=== PATIENT | male | born 1990 | race Caucasian/White ===

== ENCOUNTER → 2017-07-01 | Outpatient (CLI) | payer OTHER ==
--- NOTE | 2017-07-01 10:51 | XR ---
EXAMINATION TYPE: XR lumbosacral spine min 4V DATE OF EXAM: 07/01/2017 CLINICAL HISTORY: Extreme left-sided back pain for 2 weeks per patient. TECHNIQUE: Frontal, lateral, and oblique images of the lumbar spine are obtained. COMPARISON: Lumbar spine x-ray May 09, 2015 FINDINGS: There are 5 lumbar type vertebral bodies identified. The lumbar spine shows satisfactory alignment without evidence of acute fracture or dislocation. Vertebral body heights and disk space he ights are within normal limits. No significant spurring is present. The oblique images appear withi n normal limits. The overlying soft tissue appears unremarkable. IMPRESSION: Unremarkable study. No significant change from prior.
== END | disposition home or self-care (01) ==
LOC: RADXRYALE 10:23
PROVIDERS: ATTEND Physician Assistant Medical
DX: M54.42 Lumbago with sciatica, left side (principal)
CPT/HCPCS: 72110

== ENCOUNTER → 2017-07-21 | Outpatient (CLI) | payer OTHER ==
--- NOTE | 2017-07-21 18:54 | MR ---
EXAMINATION TYPE: MR lumbar spine wo con DATE OF EXAM: 07/21/2017 COMPARISON: NONE HISTORY: Lumbago with Left Side Sciatica TECHNIQUE: T1 and T2 axial and sagittal images of the lumbar spine are submitted. FINDINGS: There is no abnormal signal seen within the visualized spinal cord or paraspinal soft tissu es. At L1-2 there is no degenerative disc disease, disc herniation, canal stenosis, or foraminal encroach ment. At L2-3 there is no degenerative disc disease, disc herniation, canal stenosis, or foraminal encroac hment. At L3-4 there is no degenerative disc disease, disc herniation, canal stenosis, or foraminal encroac hment. At L4-5 there is no degenerative disc disease, disc herniation, canal stenosis, or foraminal encroac hment. At L5-S1 there is loss of this signal and space. There is a large central and left paracentral disc h erniation. There is mass effect upon the left nerve root. Mild effacement of the thecal sac. Moderat e bilateral foraminal encroachment. IMPRESSION: 1. At L5-S1 there is is a large central and left paracentral disc herniation. There is mass effect upon the left nerve root. Mild effacement of the thecal sac. Moderate bilateral foraminal encroachmen t.
== END | disposition home or self-care (01) ==
LOC: RADMRIMAIN 15:17
PROVIDERS: ATTEND Physician Assistant Medical
DX: M51.17 Intervertebral disc disorders with radiculopathy, lumbosacral region (principal)
CPT/HCPCS: 72148

== ENCOUNTER 2017-09-10 07:23 | Day surgery (SDC) | payer OTHER ==
[2017-09-05 11:01] VITALS: BMI 29.0
[~2017-09-10 07:23] MED LIST: BACITRACIN 50,000 UNIT, POLYMYXIN B 500,000 UNIT in SODIUM CHLORIDE 0.9% IRRIGATIO 1,00... IRRIGATION ONE; DEXAMETHASONE SOD PHOSPHATE 10 MG/ML 1 ML VIAL IV ONE; LACTATED RINGERS 1,000 ML IV SCH; MIDAZOLAM 2 MG/2 ML VIAL IV PRN; ONDANSETRON 4 MG/2 ML VIAL IVP ONE; SCOPOLAMINE 1.5MG/72HR PATCH TRANSDERM ONE; ceFAZolin IN SWFI 2 GM/20 ML SYRINGE IVP ONE
[2017-09-10] MEDS ORDERED: LIDOCAINE 1% 20 ML VIAL (10MG/ML) FOR IV START INTRADERMA ONE (08:20)
[2017-09-10] MEDS ORDERED: KETAMINE 10 MG/ML 20 ML VIAL ONE (09:42)
[2017-09-10] MEDS ORDERED: MIDAZOLAM 2 MG/2 ML VIAL ONE (09:42)
[2017-09-10] MEDS ORDERED: SUCCINYLCHOLINE CHLORIDE 100 MG/5 ML SYR IV ONE (09:42)
[2017-09-10] MEDS ORDERED: NEOSTIGMINE 1 MG/ML 10 ML VIAL ONE (09:42)
[2017-09-10] MEDS ORDERED: ROCURONIUM BROMIDE 10 MG/ML 10 ML VIAL IV ONE (09:42)
[2017-09-10] MEDS ORDERED: PROPOFOL 10 MG/ML 20 ML VIAL IV ONE (09:42)
[2017-09-10] MEDS ORDERED: LIDOCAINE 1% INJ 10MG/ML (20 ML MDV) ONE (09:42)
[2017-09-10] MEDS ORDERED: fentaNYL (PF) 50 MCG/ML 2 ML AMP ONE (09:42)
[2017-09-10] MEDS ORDERED: GLYCOPYRROLATE 0.2 MG/ML 2 ML VIAL ONE (09:42)
[2017-09-10] MEDS ORDERED: GELATIN SPONGE,ABSORB (LARGE) 1 EACH SPONGE TOPICAL ONE (09:45)
[2017-09-10] MEDS ORDERED: BUPIVACAINE (PF) 0.25% 30 ML VIAL SQ ONE (09:46)
[2017-09-10] MEDS ORDERED: methylPREDNISolone ACETATE 80 MG/ML 1 ML VIAL INJ ONE (09:46)
[2017-09-10] MEDS ORDERED: THROMBIN (BOVINE) 5,000 UNIT VIAL TOPICAL ONE (10:21)
[2017-09-10] MEDS ORDERED: LACTATED RINGERS 1,000 ML IV ONE (10:50)
[2017-09-10] MEDS ORDERED: BENZOCAINE/MENTHOL LOZENG 1 EACH LOZENGE MUCOUS MEM PRN (10:56)
[2017-09-10] MEDS ORDERED: HYDROmorphone 0.5 MG/0.5 ML SYRINGE IVP PRN (10:56)
[2017-09-10] MEDS ORDERED: HYDROmorphone 2 MG/ML 1 ML SYRINGE IVP PRN (10:56)
[2017-09-10] MEDS ORDERED: IBUPROFEN 600 MG TAB PO PRN (10:56)
[2017-09-10] MEDS ORDERED: ONDANSETRON 4 MG/2 ML VIAL IVP PRN (10:56)
[2017-09-10] MEDS ORDERED: HYDROcodone/APAP 5-325MG 1 EACH TAB PO PRN ×2 (10:56)
[2017-09-10] MEDS ORDERED: DIAZEPAM 5 MG TAB PO PRN (10:56)
[2017-09-10] MEDS ORDERED: KETOROLAC 30 MG/ML 1 ML VIAL IVP PRN (10:56)
[2017-09-10] MEDS ORDERED: HYDROcodone/APAP 7.5-325MG 1 EACH TAB PO PRN (10:58)
--- NOTE | 2017-09-10 11:02 | P.OP ---
Date of Procedure: 09/10/17 Preoperative Diagnosis: Herniated nucleus pulposis L5-S1 Lower extremity radiculopathy Postoperative Diagnosis: Same Anesthesia: GETA Pathology: none sent Condition: stable Disposition: PACU Description of Procedure: BRIEF OPERATIVE NOTE Preoperative Diagnosis: Herniated nucleus pulposis L5 S1, left lower extremity radiculopathy Postoperative Diagnosis: Same Procedure: Laminectomy and decompression L5-S1 Discectomy for decompression L5-S1 Use of fluoroscopic guidance Surgeon: Dr. Holder Mortar Mixer: Satinder LANE who is present throughout the entire the case persistence during positioning, dissection, exposure, visualization, and all crucial elements of the case as well as closure. Anesthesia: General anesthesia Estimated blood loss: Less than 50 mL Complications: None apparent Components implanted: Disposition: To recovery room in good stable condition. OPERATIVE INDICATIONS The patient has been having issues in their lower back and lower extremities. the patient had significant lower extremity radiculopathy with S1 pattern. He was found to have have a large disc herniation at L5-S1 which correlated well with his low back and lower extremity symptoms. There is significant disc desiccation at L5-S1 as well. The patient has been through conservative treatment. He is not having lasting benefit disc of bite aggressive conservative treatment We discussed various treatment options including surgery , and the patient wishes to proceed with surgery We discussed the risk, patient' s alternatives and benefits of surgery including but not limited to, risk of bleeding risk of infection, risk of need for further surgery, risk of decreased , loss of motion, loss of function, nerve damage, paralysis, heart attack, blindness and . OPERATIVE SUMMARY After discussing all the risks, patient alternatives and benefits at length, the patient elected to proceed with surgical intervention, signed informed consent, and presented for their procedure. The patient was seen and examined in the preoperative holding area and the surgical site was marked. The patient was given antibiotics and brought to the operating room. The patient was sedated and intubated by anesthesia in standard fashion. The patient was positioned on to the operating room table in a prone position on the appropriate frame which was well-padded and well molded. We were careful to pad any bony prominences and pressure points. We were careful to maintain the patient's cervical spine and good neutral alignment and position throughout. The patient was prepped and draped in a normal standard fashion. An appropriate timeout and keystone protocol performed. We were able to proceed with the surgery. Fluoroscopy was utilized to establish the appropriate level of L5-S1. The local wound area was infiltrated with local anesthetic. An incision was made at the midline longitudinally over the appropriate levels at L5-S1. Dissection was taken down subcutaneously to the level of the fascia which was split midline. Dissection was taken over the lamina. Intraoperative fluoroscopy was taken which showed a marker at the appropriate level. With the appropriate level positively confirmed, we were able to proceed with laminectomy on the left. The wound was copiously irrigated and suctioned dry as had been done periodically throughout the case. I performed a laminectomy with a combination of curettes and a high-speed bur and Kerrison rongeurs. A small medial facetectomy was performed again further access. A partial foraminotomy was also performed. Portions of the ligamentum flavum were taken down to expose the dura and traversing nerve root. I was able to mobilize the traversing nerve root and gain access to the disc space. Note was made of obvious compression from the disc. Protecting the soft tissue structures, a small annulotomy was established. I was able to perform discectomy and remove any extruded disc fragments and any loose fragments from within the disc itself. There is some disc significant desiccation noted. I tried to preserve the disc annulus that appeared stable. There were no further extruded fragments noted. There is no evidence of dural tear or leak. Good hemostasis maintained. The wound was copiously irrigated and suctioned dry. Good decompression and discectomy was noted. We were able to proceed with closure. The fascia was closed for a watertight closure. The subcuticular tissue was closed with absorbable suture. The wound was cleaned and dried and dressed with the appropriate dressing. The drapes were broken down. The patient was gently rolled back onto their hospital bed being careful to maintain their cervical spine and good neutral alignment and position. They were woken up by anesthesia, extubated, and brought to the recovery room in good stable condition. The patient will be admitted to the hospital for observation and for appropriate postoperative care, medical management and monitoring. We will continue to follow them closely about the postoperative course.
[2017-09-10] MEDS: HYDROmorphone 0.5 MG/0.5 ML SYRINGE IVP PRN ×4 (11:09→11:25)
[2017-09-10] MEDS: MEPERIDINE 50 MG/ML SYRINGE IVP ONE ×2 (11:28→11:38)
[2017-09-10 12:24] VITALS: BP 120/66; PULSE 16; RESP 16; TEMP 98.2
--- NOTE | 2017-09-10 12:58 | XR ---
EXAMINATION TYPE: XR lumbar spine 1V, FL guidance operating room DATE OF EXAM: 09/10/2017 CLINICAL HISTORY: Back pain TECHNIQUE: Fluoroscopy. COMPARISON: None. FINDINGS/IMPRESSION: Fluoroscopic guidance was provided during procedure performed by Dr. Holder. A total of 2 seconds of fluoroscopic time was utilized during the procedure and 1 spot images was acqui red demonstrating intraoperative localization of the lumbar spine.
[2017-09-10] MEDS ORDERED: ceFAZolin IN SWFI 2 GM/20 ML SYRINGE IVP SCH (16:00)
[2017-09-10] MEDS ORDERED: DOCUSATE 100 MG CAP PO SCH (21:00)
== END 2017-09-10 16:40 | disposition home or self-care (01) ==
LOC: OR 07:23 → 5MS5E 11:03 → OR 16:40
PROVIDERS: ATTEND Orthopaedic Surgery Orthopaedic Surgery of the Spine
DX: M51.16 Intervertebral disc disorders with radiculopathy, lumbar region (principal); Z87.891 Personal history of nicotine dependence; Z79.891 Long term (current) use of opiate analgesic; Z88.2 Allergy status to sulfonamides; Z88.8 Allergy status to other drugs, medicaments and biological substances
CPT/HCPCS: 72020; 63047; J1040; J1100; J2175; J2405; J1885; J1170

== ENCOUNTER 2019-05-25 18:14 | Emergency (ER) | payer OTHER ==
[2019-05-25 18:49] VITALS: BP 127/88; PULSE 98; RESP 18; TEMP 98.9
--- NOTE | 2019-05-25 19:00 | ED ---
Back Pain HPI - General Chief Complaint: Back Pain/Injury Stated Complaint: BACK PAIN Time Seen by Provider: 05/25/19 18:54 Source: patient Limitations: no limitations - History of Present Illness Initial Comments: 28-year-old male presenting for low back pain. Patient states that he has had left lower back pain chronically. He states he has had a previous L5 discectomy performed by Dr. Kwok. Patient states that he has had chronic pain since. He states the pain down his left leg. Patient denies any changes in characteristic of the pain. Denies fever or IV drug use recent falls or trauma to the back. Patient denies loss of bowel bladder control urinary retention. Denies history of cancer. Patient denies any weakness of the lower extremities he denies any sensation deficits. Patient denies any fever or IV drug use. Patient states that he was unable to tolerate his chronic pain that is seemed to be increased the past week he decided to present to the emergency department for evaluation. Patient denies any urinary symptoms. - Related Data Previous Rx's Medication Instructions Recorded Docusate [Colace] 100 mg PO BID #60 capsule 08/24/17 HYDROcodone/APAP 7.5-325MG [[place] 1 tab PO TID PRN #50 tab 08/24/17 7.5-325] Ibuprofen [Motrin] 600 mg PO Q8HR PRN #50 tab 08/24/17 HYDROcodone/APAP 7.5-325MG [[place] 1 tab PO Q6HR PRN #90 tab 09/10/17 7.5-325] Cyclobenzaprine [Flexeril] 10 mg PO TID PRN 7 Days #21 tab 05/25/19 HYDROcodone/APAP 5-325MG [[place] 1 tab PO Q6HR PRN 3 Days #12 tab 05/25/19 5-325] Allergies Allergy/AdvReac Type Severity Reaction Status Date / Time sulfamethoxazole Allergy Rash/Hives Verified 05/25/19 18:49 [From Bactrim] trimethoprim [From Bactrim] Allergy Rash/Hives Verified 05/25/19 18:49 venlafaxine [From Effexor] AdvReac SUICIDAL Verified 05/25/19 18:49 Review of Systems ROS Statement: Those systems with pertinent positive or pertinent negative responses have been documented in the HPI. ROS Other: All systems not noted in ROS Statement are negative. Past Medical History Past Medical History: No Reported History Additional Past Medical History / Comment(s): back pain History of Any Multi-Drug Resistant Organisms: None Reported Past Surgical History: Back Surgery Past Anesthesia/Blood Transfusion Reactions: No Reported Reaction Past Psychological History: Anxiety, Depression Smoking Status: Current every day smoker Past Alcohol Use History: None Reported Past Drug Use History: Marijuana General Exam - General Exam Comments Initial Comments: General: The patient is awake and alert, in no distress, and does not appear acutely ill. Eye: Pupils are equal, round and reactive to light, extra-ocular movements are intact. No nystagmus. There is normal conjunctiva bilaterally. No signs of icterus. Ears, nose, mouth and throat: There are moist mucous membranes and no oral lesions. Neck: The neck is supple, there is no tenderness or JVD. Cardiovascular: There is a regular rate and rhythm. No murmur, rub or gallop is appreciated. Respiratory: Lungs are clear to auscultation, respirations are non-labored, breath sounds are equal. No wheezes, stridor, rales, or rhonchi. Musculoskeletal: Skin inspection of the cervical thoracic and lumbar spine. Patient paravertebral tenderness of the lumbar spine. No midline tenderness. Positive straight leg raise on the left. Strength in the lower extremities equal comparison bilaterally. Full sensation of the lower extremities including saddle region. +2 dorsalis pedis pulses bilaterally. Evidence of footdrop or myoclonus. No fasciculations. Neurological: A&O x 3. CN II-XII intact, There are no obvious motor or sensory deficits. Coordination appears grossly intact. Speech is normal. Skin: Skin is warm and dry and no rashes or lesions are noted. Psychiatric: Cooperative, appropriate mood & affect, normal judgment. Limitations: no limitations Course Vital Signs 05/25/19 18:45 Temperature 98.9 F Pulse Rate 98 Respiratory 18 Rate Blood Pressure 127/88 O2 Sat by Pulse 95 Oximetry Medical Decision Making - Medical Decision Making 28yo Male presented for acute on chronic low back pain. Mostly paravertebral on examination. No appreciable midline tenderness. Patient is positive straight leg raise. He states he does have chronic left leg radiculopathy-like pain. Patient has no signs of cauda equina on examination no weakness. No sensation deficits. Patient has mostly paravertebral tenderness will be prescribed a muscle relaxer as well as medication for the pain. Patient is to follow-up with orthopedic surgery. Patient was requesting a second opinion was provided Dr. Miller neurosurgeon for evaluation of chronic back pain. Otherwise at this time patient appears well no other red flags patient has no trauma history. Patient be discharged I did recommend outpatient imaging studies including MRI for further evaluation. Patient verbalized understanding was agreeable and appeared happy with plan and was discharged appearing well and auditory Disposition Clinical Impression: Acute exacerbation of chronic low back pain, Radiculopathy Disposition: HOME SELF-CARE Condition: Good Instructions (If sedation given, give patient instructions): Acute Low Back Pain (ED) Additional Instructions: Please use medication as discussed. Please follow-up with family doctor in the next 2 days. Please return to emergency room if the symptoms increase or worsen or for any other concerns. Prescriptions: Cyclobenzaprine [Flexeril] 10 mg PO TID PRN 7 Days #21 tab PRN Reason: Muscle Spasm HYDROcodone/APAP 5-325MG [[place] 5-325] 1 tab PO Q6HR PRN 3 Days #12 tab PRN Reason: Severe Pain Is patient prescribed a controlled substance at d/c from ED?: Yes When asked, does pt state using other controlled substances?: No If prescribed controlled substance>3 days was MAPS reviewed?: Prescribed <3 Days If opioid is for acute pain is fill amount 7 days or less?: Yes If Rx opioid, was Start Talking consent form obtained?: Yes Referrals: Claudy Ramirez DO [Primary Care Provider] - 1-2 days Nelson Holder DO [Doctor of Osteopathic Medicine] - 1-2 days Jaylan Miller MD [STAFF PHYSICIAN] - 1-2 days Time of Disposition: 19:00
[2019-05-25] MEDS ORDERED: CYCLOBENZAPRINE 10MG STARTER 3 TAB BTL PO STA (19:14)
[2019-05-25] MEDS ORDERED: ACET/COD 300 MG/30 MG STARTER PACK 6 TAB BTL PO STA (19:14)
== END 2019-05-25 19:19 | disposition home or self-care (01) ==
LOC: EC 18:14
DX: M54.16 Radiculopathy, lumbar region (principal); G89.29 Other chronic pain; F17.200 Nicotine dependence, unspecified, uncomplicated; Z88.1 Allergy status to other antibiotic agents; Z88.2 Allergy status to sulfonamides; Z88.8 Allergy status to other drugs, medicaments and biological substances
CPT/HCPCS: 99283

== ENCOUNTER → 2019-09-28 | Outpatient (CLI) | payer SELFPAY ==
--- NOTE | 2019-09-28 16:00 | US ---
EXAMINATION TYPE: US thyroid st tissue head/neck DATE OF EXAM: 09/28/2019 COMPARISON: NONE CLINICAL HISTORY: R221 LOCALIZED SWELLING, MASS AND LUMP, NECK. Lump left neck for 1 month Scanned within area of concern, left neck, lymph node noted = 1.6 x 0.5 x 1.4cm IMPRESSION: 1.6 x 0.5 x 1.4 cm nonspecific soft tissue nodule likely related to an area of shotty ly mphadenopathy
== END | disposition home or self-care (01) ==
LOC: RADUSWWP 15:07
PROVIDERS: ATTEND Family Medicine
DX: R22.1 Localized swelling, mass and lump, neck (principal); F17.210 Nicotine dependence, cigarettes, uncomplicated
CPT/HCPCS: 76536

== ENCOUNTER 2020-05-23 14:09 | Emergency (ER) | payer OTHER ==
[2020-05-23 14:15] VITALS: BP 103/56; PULSE 66; RESP 19; TEMP 98.4
[2020-05-23] MEDS ORDERED: ACET/COD 300 MG/30 MG STARTER PACK 6 TAB BTL PO STA (14:25)
[2020-05-23] MEDS ORDERED: HYDROcodone/APAP 5-325MG 1 EACH TAB PO STA (14:25)
--- NOTE | 2020-05-23 14:29 | ED ---
Back Pain HPI - General Chief Complaint: Back Pain/Injury Stated Complaint: Back Pain Time Seen by Provider: 05/23/20 14:14 Source: patient, RN notes reviewed Limitations: no limitations - History of Present Illness Initial Comments: 29-year-old male presents emergency Department chief complaint of worsening low back pain. Patient had surgery 3 years ago when she had discectomy. Patient states that he recently started a job and which she is twisting, bending over more frequently states that it's been exacerbating symptoms. He denies any bowel, bladder incontinence or retention. Denies any saddle anesthesias denies any lower extremity paresthesias. He occasionally has some pain rates on his left leg but this has been ongoing. Patient's had epidural injections in the past along with physical therapy. Patient states that he was recommended have another MRI but states that he was dropped from his insurance so his been unable to complete this. - Related Data Previous Rx's Medication Instructions Recorded Docusate [Colace] 100 mg PO BID #60 capsule 08/24/17 HYDROcodone/APAP 7.5-325MG [[place] 1 tab PO TID PRN #50 tab 08/24/17 7.5-325] Ibuprofen [Motrin] 600 mg PO Q8HR PRN #50 tab 08/24/17 HYDROcodone/APAP 7.5-325MG [[place] 1 tab PO Q6HR PRN #90 tab 09/10/17 7.5-325] Cyclobenzaprine [Flexeril] 10 mg PO TID PRN 7 Days #21 tab 05/25/19 HYDROcodone/APAP 5-325MG [[place] 1 tab PO Q6HR PRN 3 Days #12 tab 05/25/19 5-325] Cyclobenzaprine [Flexeril] 10 mg PO TID PRN #15 tab 05/23/20 Ibuprofen [Motrin] 600 mg PO Q8HR PRN #20 tab 05/23/20 predniSONE 50 mg PO DAILY #5 tab 05/23/20 Allergies Allergy/AdvReac Type Severity Reaction Status Date / Time sulfamethoxazole Allergy Rash/Hives Verified 05/25/19 18:49 [From Bactrim] trimethoprim [From Bactrim] Allergy Rash/Hives Verified 05/25/19 18:49 venlafaxine [From Effexor] AdvReac SUICIDAL Verified 05/25/19 18:49 Review of Systems ROS Statement: Those systems with pertinent positive or pertinent negative responses have been documented in the HPI. ROS Other: All systems not noted in ROS Statement are negative. Past Medical History Past Medical History: No Reported History Additional Past Medical History / Comment(s): back pain History of Any Multi-Drug Resistant Organisms: None Reported Past Surgical History: Back Surgery Past Anesthesia/Blood Transfusion Reactions: No Reported Reaction Past Psychological History: Anxiety, Depression Smoking Status: Current every day smoker Past Alcohol Use History: None Reported Past Drug Use History: Marijuana General Exam Limitations: no limitations General appearance: alert, in no apparent distress Head exam: Present: atraumatic, normocephalic, normal inspection Eye exam: Present: normal appearance, PERRL, EOMI. Absent: scleral icterus, conjunctival injection, periorbital swelling Neck exam: Present: normal inspection, full ROM. Absent: tenderness, meningismus, lymphadenopathy Respiratory exam: Present: normal lung sounds bilaterally. Absent: respiratory distress, wheezes, rales, rhonchi, stridor Cardiovascular Exam: Present: regular rate, normal rhythm, normal heart sounds. Absent: systolic murmur, diastolic murmur, rubs, gallop, clicks GI/Abdominal exam: Present: soft, normal bowel sounds. Absent: distended, tenderness, guarding, rebound, rigid Extremities exam: Present: other (Lower extremity strength equal bilaterally neurovascular intact does have some scaling, rash of his ankle region equal color equal pulses) Back exam: Present: tenderness, muscle spasm, paraspinal tenderness. Absent: full ROM (Decreased range of motion secondary to pain), vertebral tenderness Neurological exam: Present: alert, oriented X3, CN II-XII intact, reflexes normal. Absent: motor sensory deficit Skin exam: Present: warm, dry, intact, normal color. Absent: rash Course Vital Signs 05/23/20 14:10 Temperature 98.4 F Pulse Rate 66 Respiratory 19 Rate Blood Pressure 103/56 O2 Sat by Pulse 100 Oximetry Medical Decision Making - Medical Decision Making Patient's has acute exacerbation of chronic back pain with no red flag symptoms neurovascular intact. Patient will be discharged in stable condition Disposition Clinical Impression: Acute exacerbation of chronic low back pain Disposition: HOME SELF-CARE Condition: Stable Instructions (If sedation given, give patient instructions): Acute Low Back Pain (ED) Additional Instructions: Please return to the Emergency Department if symptoms worsen or any other concerns. Prescriptions: Cyclobenzaprine [Flexeril] 10 mg PO TID PRN #15 tab PRN Reason: Muscle Spasm Ibuprofen [Motrin] 600 mg PO Q8HR PRN #20 tab PRN Reason: Pain predniSONE 50 mg PO DAILY #5 tab Is patient prescribed a controlled substance at d/c from ED?: No Referrals: Claudy Ramirez DO [Primary Care Provider] - 1-2 days Nelson Holder DO [Doctor of Osteopathic Medicine] - 1-2 days Time of Disposition: 14:29
== END 2020-05-23 14:36 | disposition home or self-care (01) ==
LOC: EC 14:09
DX: M54.5 Low back pain (principal); M79.605 Pain in left leg; G89.29 Other chronic pain; R21 Rash and other nonspecific skin eruption; F17.200 Nicotine dependence, unspecified, uncomplicated; Z88.2 Allergy status to sulfonamides; Z88.8 Allergy status to other drugs, medicaments and biological substances; X50.3XXA Overexertion from repetitive movements, initial encounter; Y93.89 Activity, other specified; Y92.69 Other specified industrial and construction area as the place of occurrence of the external cause; Y99.0 Civilian activity done for income or pay
CPT/HCPCS: 99283

== ENCOUNTER 2020-06-28 20:09 | Emergency (ER) | payer OTHER ==
[2020-06-28] MEDS ORDERED: DIPH,PERTUS(ACELL)TETVAC-LF 0.5 ML VIAL IM ONE (20:26)
[2020-06-28] MEDS ORDERED: ORPHENADRINE 30 MG/ML 2 ML VIAL IM STA (20:45)
[2020-06-28] MEDS ORDERED: LEVOFLOXACIN 500 MG TAB PO STA (20:45)
[2020-06-28] MEDS ORDERED: MORPHINE SULFATE 4 MG/ML SYRINGE IVP STA (20:45)
[2020-06-28] MEDS ORDERED: KETOROLAC 15 MG/ML 1 ML VIAL IM STA (20:45)
[2020-06-28] MEDS ORDERED: MORPHINE SULFATE 4 MG/ML SYRINGE IM STA (20:54)
--- NOTE | 2020-06-28 21:28 | XR ---
EXAMINATION TYPE: XR foot complete LT DATE OF EXAM: 06/28/2020 CLINICAL HISTORY: Pain after puncture wound injury. TECHNIQUE: Frontal, lateral, and oblique images of the left foot are obtained. COMPARISON: None FINDINGS: There is no acute fracture/dislocation evident in the left foot. The joint spaces in the left foot appear within normal limits. Sclerosis involving the medial one third of the first proximal phalanx noted. Findings suspicious for Melorheostosis. Other etiologies not excluded. Nonemergent f ollow-up advised. The Overlying soft tissue appears unremarkable without suspicious radiodense soft t issue foreign body. IMPRESSION: There is no acute fracture or dislocation in the left foot.
--- NOTE | 2020-06-28 21:29 | XR ---
EXAMINATION TYPE: XR lumbar spine 2 or 3V DATE OF EXAM: 06/28/2020 CLINICAL HISTORY: Low back pain down left leg after lifting injury today. History of surgery 3 years ago. TECHNIQUE: Frontal and lateral images of the lumbar spine are obtained. COMPARISON: Lumbar spine x-ray July 01, 2017. FINDINGS: There are 5 lumbar type vertebral bodies redemonstrated. The lumbar spine redemonstrates satisfactory alignment without evidence of acute fracture or dislocation. Mild to moderate disc space narrowing L5-S1 level is now present otherwise vertebral body heights and disk space heights remain within normal limits. The overlying soft tissue appears unremarkable. IMPRESSION: No acute fracture or dislocation is seen in the lumbar spine.
[2020-06-28 21:30] VITALS: BP 131/72; PULSE 86; RESP 18; TEMP 98.6
--- NOTE | 2020-06-28 21:46 | ED ---
Back Pain HPI - General Chief Complaint: Back Pain/Injury Stated Complaint: Back Injury Time Seen by Provider: 06/28/20 20:25 Source: patient, RN notes reviewed, old records reviewed, Caregiver Limitations: no limitations - History of Present Illness Initial Comments: 29 year old male presents for puncture wound after stepping on nail through shoe on L foot. Patient reports needing updated TDAP vaccine. 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 Patient reports a history of back surgery and at this time pt is having lower back spasm and shooting down L leg. Pt has not taken pain medication today. - Related Data Previous Rx's Medication Instructions Recorded Docusate [Colace] 100 mg PO BID #60 capsule 08/24/17 HYDROcodone/APAP 7.5-325MG [[place] 1 tab PO TID PRN #50 tab 08/24/17 7.5-325] Ibuprofen [Motrin] 600 mg PO Q8HR PRN #50 tab 08/24/17 HYDROcodone/APAP 7.5-325MG [[place] 1 tab PO Q6HR PRN #90 tab 09/10/17 7.5-325] Cyclobenzaprine [Flexeril] 10 mg PO TID PRN 7 Days #21 tab 05/25/19 HYDROcodone/APAP 5-325MG [[place] 1 tab PO Q6HR PRN 3 Days #12 tab 05/25/19 5-325] Cyclobenzaprine [Flexeril] 10 mg PO TID PRN #15 tab 05/23/20 Ibuprofen [Motrin] 600 mg PO Q8HR PRN #20 tab 05/23/20 predniSONE 50 mg PO DAILY #5 tab 05/23/20 Acetaminophen-Codeine 300-30mg 1 tab PO Q6H PRN 3 Days #12 tablet 06/28/20 [Tylenol w/codeine #3] Ciprofloxacin HCl [Cipro] 500 mg PO Q12HR 7 Days #14 tab 06/28/20 Cyclobenzaprine [Flexeril] 10 mg PO TID #15 tab 06/28/20 Ibuprofen [Motrin] 600 mg PO Q8HR PRN #50 tab 06/28/20 Allergies Allergy/AdvReac Type Severity Reaction Status Date / Time sulfamethoxazole Allergy Rash/Hives Verified 06/28/20 20:15 [From Bactrim] trimethoprim [From Bactrim] Allergy Rash/Hives Verified 06/28/20 20:15 venlafaxine [From Effexor] AdvReac SUICIDAL Verified 06/28/20 20:15 Review of Systems ROS Statement: Those systems with pertinent positive or pertinent negative responses have been documented in the HPI. ROS Other: All systems not noted in ROS Statement are negative. Past Medical History Past Medical History: No Reported History Additional Past Medical History / Comment(s): back pain History of Any Multi-Drug Resistant Organisms: None Reported Past Surgical History: Back Surgery Past Anesthesia/Blood Transfusion Reactions: No Reported Reaction Past Psychological History: Anxiety, Depression Smoking Status: Current every day smoker Past Alcohol Use History: None Reported Past Drug Use History: Marijuana General Exam - General Exam Comments Initial Comments: 29 year old male, moderate discomfort. Limitations: no limitations General appearance: alert, in no apparent distress Head exam: Present: atraumatic, normocephalic, normal inspection Eye exam: Present: normal appearance, PERRL, EOMI. Absent: scleral icterus, conjunctival injection, periorbital swelling ENT exam: Present: normal exam, mucous membranes moist Neck exam: Present: normal inspection. Absent: tenderness, meningismus, lymphadenopathy Respiratory exam: Present: normal lung sounds bilaterally. Absent: respiratory distress, wheezes, rales, rhonchi, stridor Cardiovascular Exam: Present: regular rate, normal rhythm, normal heart sounds. Absent: systolic murmur, diastolic murmur, rubs, gallop, clicks GI/Abdominal exam: Present: soft, normal bowel sounds. Absent: distended, tenderness, guarding, rebound, rigid Extremities exam: Present: normal inspection, full ROM, normal capillary refill, other (Pt has puncture wound on L sole of foot. Wound is closed.dried blood ntoed. Full ROM of foot and toes. No erythema. ). Absent: tenderness, pedal edema, joint swelling, calf tenderness Back exam: Present: normal inspection, tenderness (lumbar back pain andl left paraspinal tenderness.) Neurological exam: Present: alert, oriented X3, CN II-XII intact Psychiatric exam: Present: normal affect, normal mood Skin exam: Present: warm, dry, intact, normal color. Absent: rash Course Vital Signs 06/28/20 06/28/20 06/28/20 20:10 20:29 21:27 Temperature 99.1 F 98.6 F Pulse Rate 95 86 Respiratory 20 20 18 Rate Blood Pressure 134/75 131/72 O2 Sat by Pulse 98 97 Oximetry 06/28/20 21:51 Temperature 98.6 F Pulse Rate 86 Respiratory 18 Rate Blood Pressure 131/72 O2 Sat by Pulse 97 Oximetry Medical Decision Making - Medical Decision Making 29 year old male with back pain with movement after heavy lifting and puncture wound from nail on foot. Lumbar spine xray is negative for fracture. Foot xray shows no retained foreign body. Patient given im pain medication for back pain and TDAP. On reckeck he is feeling much better. Discussed putting pt on cipro for puncture wound and advised close PCP follow up. - Radiology Data Radiology results: report reviewed Lumbar spine xray is negatve for fracture. Foot xray shows no fracture adn foreign body. Disposition Clinical Impression: Puncture wound of foot, Back spasm Disposition: HOME SELF-CARE Condition: Good Instructions (If sedation given, give patient instructions): Puncture Wound (ED), Acute Low Back Pain (ED) Additional Instructions: Please use medication as discussed. Please follow up with family doctor if symptoms have not improved over the next two days. Please return to the emergency room if your symptoms increase or worsen or for any other concerns. Prescriptions: Ciprofloxacin HCl [Cipro] 500 mg PO Q12HR 7 Days #14 tab Cyclobenzaprine [Flexeril] 10 mg PO TID #15 tab Ibuprofen [Motrin] 600 mg PO Q8HR PRN #50 tab PRN Reason: Pain Acetaminophen-Codeine 300-30mg [Tylenol w/codeine #3] 1 tab PO Q6H PRN 3 Days #12 tablet PRN Reason: Pain Is patient prescribed a controlled substance at d/c from ED?: Yes If prescribed controlled substance>3 days was MAPS reviewed?: Prescribed <3 Days If opioid is for acute pain is fill amount 7 days or less?: Yes If Rx opioid, was Start Talking consent form obtained?: Yes Referrals: Claudy Ramirez DO [Primary Care Provider] - 1-2 days Time of Disposition: 21:43
== END 2020-06-28 21:54 | disposition home or self-care (01) ==
LOC: EC 20:09
DX: M62.830 Muscle spasm of back (principal); S91.332A Puncture wound without foreign body, left foot, initial encounter; F17.200 Nicotine dependence, unspecified, uncomplicated; Z88.1 Allergy status to other antibiotic agents; Z88.2 Allergy status to sulfonamides; Z88.8 Allergy status to other drugs, medicaments and biological substances; W45.0XXA Nail entering through skin, initial encounter
CPT/HCPCS: 72100; 73630; 90715; 99284; 90471; 96372 ×3; J2270; J2360; J1885